=== PATIENT | female | born 1980 | race African-American/Black ===

== ENCOUNTER 2018-02-04 11:19 | Emergency (ER) | payer SELFPAY ==
[~2018-02-04] VITALS: Ht 160 cm; Wt 56.0 kg
[~2018-02-04 11:19] MED LIST: ALBU17I INH; AMOX875 PO; FLUTI110I INH; METH250T PO; PRED20 PO
[2018-02-04 11:24] VITALS: BP 138/67; PULSE 98; RESP 17; TEMP 97.7; O2SAT 99
--- NOTE | 2018-02-04 12:21 | PD ---
HPI Chief Complaint: Back/ Neck Pain or Injury Time Seen by Provider: 12:10 Travel History International Travel<30 days: No Contact w/Intl Traveler<30days: No Traveled to known affect area: No History of Present Illness HPI 37-year-old female complains of left flank pain. Patient states the symptoms started about 4 weeks ago. Patient stated the pain and cramping pain localized to left flank area. Patient states the pain is worse with movement. Patient has been wearing back brace with it. Patient states that occasionally the pain radiates to the left lower abdomen area. Patient states that she has intermittent nausea vomiting with the pain. Patient denies any fever chills. Patient denies any dysuria or frequency. Patient denies any vaginal discharge or bleeding. Patient denies any history of kidney stone. PFSH Past Medical History Asthma: Yes Hypertension: Yes Integumentary: Yes (ECZEMA) Influenza Vaccination: No ?: Unknown Past Surgical History Surgical History: No Previous Surgery Social History Alcohol Use: No Tobacco Use: No Substance Use: No Allergies-Medications (Allergen,Severity, Reaction): Uncoded Allergies: seasonal (Allergy, Intermediate, Itching, 03/14/13) Reported Meds & Prescriptions Reported Meds & Active Scripts Active Deltasone (Prednisone) 20 Mg Tab 20 Mg PO BID Amoxil (Amoxicillin) 875 Mg Tab 875 Mg PO BID 10 Days Aldomet (Methyldopa) 250 Mg Tab 250 Mg PO BID Flovent Hfa (Fluticasone Propionate) 110 Mcg Aero 1 Puff INH BID Proventil Mdi (Albuterol Sulfate) 17 Gm Aero 2 Puff INH Q4 Review of Systems General / Constitutional: No: Fever Eyes: No: Visual changes HENT: No: Headaches Cardiovascular: No: Chest Pain or Discomfort Respiratory: No: Shortness of Breath Gastrointestinal: No: Abdominal Pain Genitourinary: No: Dysuria Musculoskeletal: No: Pain Skin: No Rash Neurologic: No: Weakness Psychiatric: No: Depression Endocrine: No: Polydipsia Hematologic/Lymphatic: No: Easy Bruising Physical Exam Narrative GENERAL: Well-nourished, well-developed patient. SKIN: Focused skin assessment warm/dry. HEAD: Normocephalic. EYES: No scleral icterus. No injection or drainage. NECK: Supple, trachea midline. No JVD or lymphadenopathy. CARDIOVASCULAR: Regular rate and rhythm without murmurs, gallops, or rubs. RESPIRATORY: Breath sounds equal bilaterally. No accessory muscle use. GASTROINTESTINAL: Abdomen soft, non-tender, nondistended. MUSCULOSKELETAL: No cyanosis, or edema. BACK: Nontender without obvious deformity. No CVA tenderness. Neurologic exam normal. Data Data Last Documented VS Vital Signs Date Time Temp Pulse Resp B/P (MAP) Pulse Ox O2 Delivery O2 Flow Rate FiO2 02/04/18 11:24 97.7 98 17 138/67 (90) 99 Orders Orders Urinalysis - C+S If Indicated (02/04/18 12:14) Ct Abd/Pel W/O Iv Contrast (02/04/18 12:14) Ed Urine Pregnancytest Poc (02/04/18 12:14) Ed Discharge Order (02/04/18 13:55) Labs Laboratory Tests Test 02/04/18 12:23 Urine Color YELLOW Urine Turbidity HAZY Urine pH 6.0 Urine Specific [place] 1.023 Urine Protein NEG mg/dL Urine Glucose (UA) NEG mg/dL Urine Ketones NEG mg/dL Urine Occult Blood NEG Urine Nitrite NEG Urine Bilirubin NEG Urine Urobilinogen LESS THAN 2.0 MG/DL Urine Leukocyte Esterase NEG Urine RBC 1 /hpf Urine WBC 1 /hpf Urine Squamous Epithelial Cells 2 /hpf Urine Bacteria OCC /hpf Microscopic Urinalysis Comment CULT NOT INDICATED MDM Medical Decision Making Medical Screen Exam Complete: Yes Emergency Medical Condition: Yes Differential Diagnosis Differential diagnosis including nephrolithiasis, pyelonephritis, UTI, ovarian cyst, PID, ectopic , colitis. Narrative Course 37-year-old female complains of left flank pain and occasional nausea vomiting with the pain. Diagnosis Primary Impression: Left ovarian cyst Additional Impression: Low back pain Qualified Codes: M54.5 - Low back pain Patient Instructions: General Instructions Additional Instructions: Take medication as needed for pain. Follow-up with online banking specialist. Follow-up with personal physician. Return if worse. Med/Other Pt SpecificInfo: Prescription(s) given Scripts Methocarbamol (Robaxin) 750 Mg Tab 750 MG PO QID for Muscle Spasm, #40 TAB 0 Refills Prov: Celestino Griffiths MD 02/04/18 Meloxicam (Mobic) 15 Mg Tab 15 MG PO DAILY for Pain, #30 TAB 0 Refills Prov: Celestino Griffiths MD 02/04/18 Disposition: 01 DISCHARGE HOME Condition: Stable Celestino Griffiths MD Feb 04, 2018 12:21
[2018-02-04 12:56] LABS: BACTERIA, URINE OCC /hpf; BILIRUBIN, URINE NEG (NEG); BLOOD, URINE NEG (NEG); GLUCOSE,URINE NEG (NEG); KETONE, URINE NEG (NEG); NITRITE,URINE NEG (NEG); SQUAMOUS EPITHELIAL CELL URINE 2 /hpf (0-5); URINE COLOR YELLOW (YELLW/STRAW); URINE LEUKOCYTE ESTERASE NEG (NEG)
--- NOTE | 2018-02-04 13:43 | RADRPT ---
EXAM DATE/TIME: 02/04/2018 13:14 [facility] COMPARISON: No previous studies available for comparison. INDICATIONS : Left flank pain and vomiting. ORAL CONTRAST: No oral contrast ingested. RADIATION DOSE: 4.00 CTDIvol (mGy) MEDICAL HISTORY : Hypertension. SURGICAL HISTORY : None. ENCOUNTER: Initial ACUITY: 1 day PAIN SCALE: 10/10 LOCATION: abdomen/pelvis TECHNIQUE: Volumetric scanning of the abdomen and pelvis was performed. Using automated exposure control and ad justment of the mA and/or kV according to patient size, radiation dose was kept as low as reasonably achievable to obtain optimal diagnostic quality images. DICOM format image data is available electro nically for review and comparison. FINDINGS: Lung bases are clear. No acute findings in the liver, spleen, adrenals, kidneys or pancreas. No calci fied gallstones or biliary ductal dilatation. There is mild constipation. No free fluid or free air. No bowel obstruction. There is a low attenuati on area in the left adnexa measuring up to 6.1 cm in length and 2.2 cm in diameter. Differential diag nosis includes a hydrosalpinx or ovarian cysts. This would be better evaluated with pelvic ultrasound . Small right adnexal cysts. Bladder unremarkable. CONCLUSION: 1. Low attenuation area in the left adnexa, possibly a hydrosalpinx or ovarian cyst. Recommend correl ation with pelvic ultrasound. 2. Mild constipation. No renal calculi or evidence for obstructive uropathy. Rodger Flower MD on February 04, 2018 at 13:29 Board Certified Radiologist. This report was verified electronically.
[2018-02-04] MEDS ORDERED: MOBI15TA PO (14:01)
[2018-02-04] MEDS ORDERED: ROBA750T PO (14:01)
== END 2018-02-04 14:21 | disposition home or self-care (01) ==
LOC: NEPD 11:19
DX: N83.202 Unspecified ovarian cyst, left side (principal); M54.5 Low back pain; R11.2 Nausea with vomiting, unspecified; K59.00 Constipation, unspecified; J45.909 Unspecified asthma, uncomplicated; I10 Essential (primary) hypertension; Z79.51 Long term (current) use of inhaled steroids; Z79.899 Other long term (current) drug therapy
CPT/HCPCS: 74176; 81001; 84703; 99284

== ENCOUNTER 2018-03-16 20:43 | Emergency (ER) | payer SELFPAY ==
[~2018-03-16 20:43] MED LIST changes: +MOBI15TA PO; +ROBA750T PO
[2018-03-16 21:00] VITALS: BP 141/85; PULSE 75; RESP 18; TEMP 98.7; O2SAT 99
--- NOTE | 2018-03-16 21:02 | PD ---
HPI Chief Complaint: Pain: Acute or Chronic Time Seen by Provider: 21:02 Travel History International Travel<30 days: No Contact w/Intl Traveler<30days: No Traveled to known affect area: No History of Present Illness HPI 37-year-old female presents emergency department for evaluation of left-sided abdominal pain. States that it radiates from her back to her abdomen. Started last night. Patient states she has had this in the past and she was told that she had a cyst. She has not followed up in regards to this. Denies any nausea vomiting. Pain is a constant, sharp pain, moderate in severity. Denies any chest pain or tightness. No difficulty breathing. No fever OR chills. No other symptoms to report. PFSH Past Medical History Asthma: Yes Diminished Hearing: No Genitourinary: Yes (OVARIAN CYST) Hypertension: Yes Integumentary: Yes (ECZEMA) Immunizations Current: Yes ?: Not Past Surgical History Surgical History: No Previous Surgery Social History Alcohol Use: Yes Tobacco Use: Yes Substance Use: No Allergies-Medications (Allergen,Severity, Reaction): Uncoded Allergies: seasonal (Allergy, Intermediate, Itching, 03/14/13) Reported Meds & Prescriptions Reported Meds & Active Scripts Active Tramadol (Tramadol HCl) 50 Mg Tab 50 Mg PO Q6H PRN Ibuprofen 800 Mg Tab 800 Mg PO Q8H PRN Review of Systems Except as stated in HPI: all other systems reviewed are Neg Physical Exam Narrative GENERAL: Well-nourished female patient, mild distress secondary to pain SKIN: Focused skin assessment warm/dry. HEAD: Atraumatic. Normocephalic. EYES: Pupils equal and round. No scleral icterus. No injection or drainage. ENT: No nasal bleeding or discharge. Mucous membranes pink and moist. NECK: Trachea midline. No JVD. CARDIOVASCULAR: Regular rate and rhythm. No murmur appreciated. RESPIRATORY: No accessory muscle use. Clear to auscultation. Breath sounds equal bilaterally. GASTROINTESTINAL: Abdomen soft, nondistended. Left lower quadrant tenderness to palpation. No guarding. No rebound tenderness. Hepatic and splenic margins not palpable. MUSCULOSKELETAL: No obvious deformities. No clubbing. No cyanosis. No edema. NEUROLOGICAL: Awake and alert. No obvious cranial nerve deficits. Motor grossly within normal limits. Normal speech. PSYCHIATRIC: Appropriate mood and affect; insight and judgment normal. Data Data Last Documented VS Vital Signs Date Time Temp Pulse Resp B/P (MAP) Pulse Ox O2 Delivery O2 Flow Rate FiO2 03/17/18 00:58 03/16/18 22:57 73 18 99 Room Air 03/16/18 21:00 98.7 Orders Orders Basic Metabolic Panel (Bmp) (03/16/18 21:15) Complete Blood Count With Diff (03/16/18 21:15) Urinalysis - C+S If Indicated (03/16/18 21:15) Ct Abd/Pel W/O Iv Contrast (03/16/18 21:15) Iv Access Insert/Monitor (03/16/18 21:15) Ecg Monitoring (03/16/18 21:15) Oximetry (03/16/18 21:15) Ondansetron Inj (Zofran Inj) (03/16/18 21:15) Sodium Chlor 0.9% 1000 Ml Inj (Ns 1000 M (03/16/18 21:15) Sodium Chloride 0.9% Flush (Ns Flush) (03/16/18 21:15) Ketorolac Inj (Toradol Inj) (03/16/18 21:15) Ed Urine Pregnancytest Poc (03/16/18 21:15) Morphine Inj (Morphine Inj) (03/16/18 22:45) Ed Discharge Order (03/17/18 00:30) Labs Laboratory Tests Test 03/16/18 21:33 03/16/18 22:50 White Blood Count 8.6 TH/MM3 Red Blood Count 4.41 MIL/MM3 Hemoglobin 14.9 GM/DL Hematocrit 43.3 % Mean Corpuscular Volume 98.1 FL Mean Corpuscular Hemoglobin 33.7 PG Mean Corpuscular Hemoglobin Concent 34.4 % Red Cell Distribution Width 13.0 % Platelet Count 533 TH/MM3 Mean Platelet Volume 6.7 FL Neutrophils (%) (Auto) 59.3 % Lymphocytes (%) (Auto) 32.6 % Monocytes (%) (Auto) 6.4 % Eosinophils (%) (Auto) 1.2 % Basophils (%) (Auto) 0.5 % Neutrophils # (Auto) 5.1 TH/MM3 Lymphocytes # (Auto) 2.8 TH/MM3 Monocytes # (Auto) 0.5 TH/MM3 Eosinophils # (Auto) 0.1 TH/MM3 Basophils # (Auto) 0.0 TH/MM3 CBC Comment DIFF FINAL Differential Comment Blood Urea Nitrogen 7 MG/DL Creatinine 1.06 MG/DL Random Glucose 78 MG/DL Calcium Level 8.7 MG/DL Sodium Level 140 MEQ/L Potassium Level 4.1 MEQ/L Chloride Level 105 MEQ/L Carbon Dioxide Level 31.4 MEQ/L Anion Gap 4 MEQ/L Estimat Glomerular Filtration Rate 71 ML/MIN Urine Color LIGHT-YELLOW Urine Turbidity HAZY Urine pH 6.0 Urine Specific [place] 1.024 Urine Protein NEG mg/dL Urine Glucose (UA) NEG mg/dL Urine Ketones NEG mg/dL Urine Occult Blood NEG Urine Nitrite NEG Urine Bilirubin NEG Urine Urobilinogen LESS THAN 2.0 MG/DL Urine Leukocyte Esterase NEG Urine RBC LESS THAN 1 /hpf Urine WBC LESS THAN 1 /hpf Urine Squamous Epithelial Cells 14 /hpf Urine Mucus FEW /lpf Microscopic Urinalysis Comment CULT NOT INDICATED MDM Medical Decision Making Medical Screen Exam Complete: Yes Emergency Medical Condition: Yes Medical Record Reviewed: Yes Differential Diagnosis Colitis versus mass versus abscess versus UTI versus renal calculi Narrative Course 37-year-old female presents emergency department for evaluation of left-sided flank pain that radiates to her abdomen. Patient appears initially mild distress secondary to pain. This is treated. Laboratory Tests Test 03/16/18 21:33 03/16/18 22:50 White Blood Count 8.6 TH/MM3 Red Blood Count 4.41 MIL/MM3 Hemoglobin 14.9 GM/DL Hematocrit 43.3 % Mean Corpuscular Volume 98.1 FL Mean Corpuscular Hemoglobin 33.7 PG Mean Corpuscular Hemoglobin Concent 34.4 % Red Cell Distribution Width 13.0 % Platelet Count 533 TH/MM3 Mean Platelet Volume 6.7 FL Neutrophils (%) (Auto) 59.3 % Lymphocytes (%) (Auto) 32.6 % Monocytes (%) (Auto) 6.4 % Eosinophils (%) (Auto) 1.2 % Basophils (%) (Auto) 0.5 % Neutrophils # (Auto) 5.1 TH/MM3 Lymphocytes # (Auto) 2.8 TH/MM3 Monocytes # (Auto) 0.5 TH/MM3 Eosinophils # (Auto) 0.1 TH/MM3 Basophils # (Auto) 0.0 TH/MM3 CBC Comment DIFF FINAL Differential Comment Blood Urea Nitrogen 7 MG/DL Creatinine 1.06 MG/DL Random Glucose 78 MG/DL Calcium Level 8.7 MG/DL Sodium Level 140 MEQ/L Potassium Level 4.1 MEQ/L Chloride Level 105 MEQ/L Carbon Dioxide Level 31.4 MEQ/L Anion Gap 4 MEQ/L Estimat Glomerular Filtration Rate 71 ML/MIN Urine Color LIGHT-YELLOW Urine Turbidity HAZY Urine pH 6.0 Urine Specific [place] 1.024 Urine Protein NEG mg/dL Urine Glucose (UA) NEG mg/dL Urine Ketones NEG mg/dL Urine Occult Blood NEG Urine Nitrite NEG Urine Bilirubin NEG Urine Urobilinogen LESS THAN 2.0 MG/DL Urine Leukocyte Esterase NEG Urine RBC LESS THAN 1 /hpf Urine WBC LESS THAN 1 /hpf Urine Squamous Epithelial Cells 14 /hpf Urine Mucus FEW /lpf Microscopic Urinalysis Comment CULT NOT INDICATED Last Impressions Abdomen/Pelvis CT 03/16/182114 Signed Impressions: Service Date/Time: Friday, March 16, 2018 23:39 - CONCLUSION: 1. Stable CT since February 07. Complex left-sided adnexal cysts extending over a length of about 6 cm and up to 2.2 cm diameter. No renal calculi or obstructive uropathy. Rodger Flower MD Findings are discussed with patient. I discussed the patient my attending physician is also assessed the patient. Patient will be discharged to follow- up with gynecology. She is encouraged to return immediately with acute worsening symptoms. Diagnosis Primary Impression: Adnexal mass Additional Impression: Flank pain Referrals: Primary Care Physician Patient Instructions: Flank Pain (ED), General Instructions Additional Instructions: Follow-up with a primary care provider Return immediately with acute worsening of symptoms Med/Other Pt SpecificInfo: Prescription(s) given Scripts Tramadol (Tramadol) 50 Mg Tab 50 MG PO Q6H Y for PAIN, #12 TAB 0 Refills Prov: Nilay Kraus MD 03/17/18 Ibuprofen (Ibuprofen) 800 Mg Tab 800 MG PO Q8H Y for PAIN SCALE 1 TO 10, #30 TAB 0 Refills Prov: Pam Adams 03/17/18 Disposition: 01 DISCHARGE HOME Condition: Stable Pam Adams Mar 16, 2018 21:02
[2018-03-16] MEDS ORDERED: SODIUM CHLORIDE 0.9% FLUSH 10 ML FLUSH IV FLUSH PRN (21:15)
[2018-03-16] MEDS ORDERED: KETOROLAC TROMETHAMINE 30 MG/ML (IVP) VIAL IVP ONE (21:15)
[2018-03-16] MEDS ORDERED: SODIUM CHLOR 0.9% 1000 ML INJ 1,000 ML IV SCH (21:15)
[2018-03-16] MEDS ORDERED: ONDANSETRON HCL 4 MG/2 ML VIAL IVP ONE (21:15)
[2018-03-16 21:41] LABS: AUTOMATED NEUTROPHIL # 5.1 TH/MM3 (1.8-7.7); BASOPHIL % 0.5 % (0.0-2.0); EOSINOPHIL # 0.1 TH/MM3 (0-0.4); EOSINOPHIL % 1.2 % (0.0-4.0); HEMATOCRIT 43.3 % (35.0-46.0); HEMOGLOBIN 14.9 GM/DL (11.6-15.3); LYMPH % 32.6 % (9.0-44.0); LYMPHOCYTE # 2.8 TH/MM3 (1.0-4.8); MEAN CELL VOLUME 98.1 FL (80.0-100.0); MEAN CORPUSCULAR HEMOGLOBIN 33.7 PG (27.0-34.0); MEAN CORPUSCULAR HGB CONC 34.4 % (32.0-36.0); MEAN PLATELET VOLUME 6.7 FL (7.0-11.0); MONO % 6.4 % (0.0-8.0); MONOCYTE # 0.5 TH/MM3 (0-0.9); NEUT % 59.3 % (16.0-70.0); PLATELET COUNT 533 TH/MM3 (150-450); RED BLOOD COUNT 4.41 MIL/MM3 (4.00-5.30); WHITE BLOOD COUNT 8.6 TH/MM3 (4.0-11.0)
[2018-03-16 22:11] LABS: BICARBONATE 31.4 MEQ/L (21.0-32.0); CALCIUM 8.7 MG/DL (8.5-10.1); CREATININE 1.06 MG/DL (0.50-1.00)
[2018-03-16] MEDS ORDERED: MORPHINE SULFATE 2 MG/ML SYRINGE IV PUSH ONE (22:45)
[2018-03-16 22:57] VITALS: BP 141/85; PULSE 73; RESP 18; O2SAT 99
[2018-03-16 23:03] LABS: BILIRUBIN, URINE NEG (NEG); BLOOD, URINE NEG (NEG); GLUCOSE,URINE NEG (NEG); KETONE, URINE NEG (NEG); MUCUS URINE FEW /lpf (OCC); NITRITE,URINE NEG (NEG); SQUAMOUS EPITHELIAL CELL URINE 14 /hpf (0-5); URINE COLOR LIGHT-YELLOW (YELLW/STRAW); URINE LEUKOCYTE ESTERASE NEG (NEG)
--- NOTE | 2018-03-17 00:07 | RADRPT ---
EXAM DATE/TIME: 03/16/2018 23:39 [facility] COMPARISON: No previous studies available for comparison. INDICATIONS : Bilateral flank pain. ORAL CONTRAST: No oral contrast ingested. RADIATION DOSE: 9.16 CTDIvol (mGy) MEDICAL HISTORY : Hypertension. Ovarian cysts. SURGICAL HISTORY : None. ENCOUNTER: Initial ACUITY: 1 day PAIN SCALE: 7/10 LOCATION: Bilateral flank TECHNIQUE: Volumetric scanning of the abdomen and pelvis was performed. Using automated exposure control and ad justment of the mA and/or kV according to patient size, radiation dose was kept as low as reasonably achievable to obtain optimal diagnostic quality images. DICOM format image data is available electro nically for review and comparison. FINDINGS: Lung bases are clear. No acute findings in the liver, spleen, adrenals, kidneys or pancreas. No calcified gallstones. No free fluid. No bowel obstruction. Stable complex left-sided adnexal cysts compared with February 07. Cannot rule out left-sided hydrosalpinx. CONCLUSION: 1. Stable CT since February 07. Complex left-sided adnexal cysts extending over a length of about 6 cm a nd up to 2.2 cm diameter. No renal calculi or obstructive uropathy. Rodger Flower MD on March 16, 2018 at 23:57 Board Certified Radiologist. This report was verified electronically.
[2018-03-17] MEDS ORDERED: IBUP1TAB7 PO (00:33)
[2018-03-17] MEDS ORDERED: TRAM50TA PO (00:35)
--- NOTE | 2018-03-17 00:36 | PD ---
Data Data Last Documented VS Vital Signs Date Time Temp Pulse Resp B/P (MAP) Pulse Ox O2 Delivery O2 Flow Rate FiO2 03/16/18 22:57 73 18 141/85 (103) 99 Room Air 03/16/18 21:00 98.7 Orders Orders Basic Metabolic Panel (Bmp) (03/16/18 21:15) Complete Blood Count With Diff (03/16/18 21:15) Urinalysis - C+S If Indicated (03/16/18 21:15) Ct Abd/Pel W/O Iv Contrast (03/16/18 21:15) Iv Access Insert/Monitor (03/16/18 21:15) Ecg Monitoring (03/16/18 21:15) Oximetry (03/16/18 21:15) Ondansetron Inj (Zofran Inj) (03/16/18 21:15) Sodium Chlor 0.9% 1000 Ml Inj (Ns 1000 M (03/16/18 21:15) Sodium Chloride 0.9% Flush (Ns Flush) (03/16/18 21:15) Ketorolac Inj (Toradol Inj) (03/16/18 21:15) Ed Urine Pregnancytest Poc (03/16/18 21:15) Morphine Inj (Morphine Inj) (03/16/18 22:45) Ed Discharge Order (03/17/18 00:30) Labs Laboratory Tests Test 03/16/18 21:33 03/16/18 22:50 White Blood Count 8.6 TH/MM3 Red Blood Count 4.41 MIL/MM3 Hemoglobin 14.9 GM/DL Hematocrit 43.3 % Mean Corpuscular Volume 98.1 FL Mean Corpuscular Hemoglobin 33.7 PG Mean Corpuscular Hemoglobin Concent 34.4 % Red Cell Distribution Width 13.0 % Platelet Count 533 TH/MM3 Mean Platelet Volume 6.7 FL Neutrophils (%) (Auto) 59.3 % Lymphocytes (%) (Auto) 32.6 % Monocytes (%) (Auto) 6.4 % Eosinophils (%) (Auto) 1.2 % Basophils (%) (Auto) 0.5 % Neutrophils # (Auto) 5.1 TH/MM3 Lymphocytes # (Auto) 2.8 TH/MM3 Monocytes # (Auto) 0.5 TH/MM3 Eosinophils # (Auto) 0.1 TH/MM3 Basophils # (Auto) 0.0 TH/MM3 CBC Comment DIFF FINAL Differential Comment Blood Urea Nitrogen 7 MG/DL Creatinine 1.06 MG/DL Random Glucose 78 MG/DL Calcium Level 8.7 MG/DL Sodium Level 140 MEQ/L Potassium Level 4.1 MEQ/L Chloride Level 105 MEQ/L Carbon Dioxide Level 31.4 MEQ/L Anion Gap 4 MEQ/L Estimat Glomerular Filtration Rate 71 ML/MIN Urine Color LIGHT-YELLOW Urine Turbidity HAZY Urine pH 6.0 Urine Specific [place] 1.024 Urine Protein NEG mg/dL Urine Glucose (UA) NEG mg/dL Urine Ketones NEG mg/dL Urine Occult Blood NEG Urine Nitrite NEG Urine Bilirubin NEG Urine Urobilinogen LESS THAN 2.0 MG/DL Urine Leukocyte Esterase NEG Urine RBC LESS THAN 1 /hpf Urine WBC LESS THAN 1 /hpf Urine Squamous Epithelial Cells 14 /hpf Urine Mucus FEW /lpf Microscopic Urinalysis Comment CULT NOT INDICATED MDM Supervised Visit with CYNDIE: Yes Narrative Course I, Dr. Kraus, have reviewed the advance practice practitioner's documentation and am in agreement, met with the patient face to face, made the diagnosis, and the medical decision making was done by me. *My assessment and Findings: I reviewed the workup with the patient. She has a complex left-sided adnexal cyst but stable from prior. Labs are normal. Recommend ROAD CUTTER follow-up Diagnosis Primary Impression: Adnexal mass Additional Impression: Flank pain Referrals: Primary Care Physician Patient Instructions: General Instructions, Flank Pain (ED) Departure Forms: Tests/Procedures Additional Instruction: Follow-up with a primary care provider Return immediately with acute worsening of symptoms Scripts Tramadol (Tramadol) 50 Mg Tab 50 MG PO Q6H Y for PAIN, #12 TAB 0 Refills Prov: Nilay Kraus MD 03/17/18 Ibuprofen (Ibuprofen) 800 Mg Tab 800 MG PO Q8H Y for PAIN SCALE 1 TO 10, #30 TAB 0 Refills Prov: Pam Adams 03/17/18 Disposition: 01 DISCHARGE HOME Condition: Stable Nilay Kraus MD Mar 17, 2018 00:36
== END 2018-03-17 00:59 | disposition home or self-care (01) ==
LOC: NEPD 20:43
DX: R19.00 Intra-abdominal and pelvic swelling, mass and lump, unspecified site (principal); Z72.0 Tobacco use
CPT/HCPCS: 74176; 80048; 81001; 84703; 85025; 96361; 96374; 96375; 99284; J1885; J2270; J2405; J7030